=== PATIENT | male | born 1945 ===

== ENCOUNTER → 2023-04-14 08:00 | Outpatient (CLI) | payer OTHER ==
[~2023-04-14 08:00] MED LIST: [UNRECOGNIZED DRUG - OTHER]
[2023-04-14 12:51] LABS: ALBUMIN 3.2 gm/dL (3.4-5.0); ALKALINE PHOSPHATASE 76 U/L (50-136); ANION GAP 8 (10.0-20.0); AST/SGOT 10 U/L (15-37); BILIRUBIN TOTAL 0.41 mg/dL (0.3-1.2); BLOOD UREA NITROGEN 36 mg/dL (7-18); BUN CREA RATIO 30 (7.0-25.0); CALCIUM 9.5 mg/dL (8.5-10.1); CARBON DIOXIDE 32 mEq/L (21-32); CHLORIDE 101 mmol/L (98-107); CREATININE SERUM 1.19 mg/dL (0.70-1.30); GFR 59.28; GLOBULINA 4.3 G/DL (2.4-3.5); GLUCOSE FASTING 148 mg/dL (65-100); OSMOLALITY SERUM 285 MOSM/KG (275-295); POTASSIUM 3.75 mEq/L (3.5-5.1); SODIUM 137 mmol/L (136-145); TOTAL PROTEIN 7.5 gm/dL (6.4-8.2)
[2023-04-14 12:53] LABS: ALT/SGPT < 6 U/L (12-78)
== END | disposition home or self-care (01) ==
LOC: LAB 08:00 → SURG 04-29 07:00 → EDSTATUS 04-29 10:00
PROVIDERS: ATTEND Surgery
DX: C18.0 Malignant neoplasm of cecum (principal); K62.5 Hemorrhage of anus and rectum; K63.5 Polyp of colon

== ENCOUNTER → 2023-04-28 07:42 | Outpatient (CLI) | payer OTHER | END | disposition home or self-care (01) | LOC: NUCLEAR 07:42 | DX: I35.8 Other nonrheumatic aortic valve disorders (principal) ==

== ENCOUNTER 2023-05-31 09:46 | Outpatient (CLI) | payer OTHER | END 2023-05-31 09:47 | disposition home or self-care (01) | LOC: NUCLEAR 09:46 | PROVIDERS: ATTEND Internal Medicine | DX: I35.9 Nonrheumatic aortic valve disorder, unspecified (principal) ==